=== PATIENT | female | born 1955 ===

== ENCOUNTER 2025-03-30 05:33 | Day surgery (SDC) | payer OTHER ==
[2025-03-24 09:52] VITALS: BP 141/84
[~2025-03-30] VITALS: Ht 157.5 cm; Wt 71.2 kg
[2025-03-30] MEDS ORDERED: GENTAMICIN SULFATE 40 MG/ML VIAL IR ONE (09:45)
[2025-03-30] MEDS ORDERED: CEFAZOLIN SODIUM 1,000 MG VIAL IV ONE (09:45)
[2025-03-30] MEDS ORDERED: CEFAZOLIN SODIUM 1,000 MG VIAL IJ ONE (09:45)
[2025-03-30] MEDS ORDERED: TRAM1TAB98 PO (10:38)
[2025-03-30] MEDS ORDERED: MACROBID 100 M100 MG PO (10:38)
== END 2025-03-30 14:45 | disposition home or self-care (01) ==
LOC: CIR.AMB 05:33
PROVIDERS: ATTEND Obstetrics & Gynecology Gynecology
DX: N81.11 Cystocele, midline (principal); N81.5 Vaginal enterocele